=== PATIENT | female | born 1955 | race Caucasian/White ===

== ENCOUNTER → 2016-09-01 | Outpatient (CLI) | payer BC ==
[~2016-09-01] MED LIST: ENABLEX; METFORMIN; PROTONIX PO; SYNTHROID
--- NOTE | ~2016-09-01 | MY11 ---
[facility] A Service of [facility] RADIOLOGY TEXT RESULTS PATIENT: BENJAMIN DOLL LOCATION: [facility] : 55 UNIT #: [id number] AGE: [address]: Caro Mo MD SEX: F ORDER DR: [id number] [facility] [address] [place], [place] [address] [id number] O MR#: [id number] Acc #: [id number] NAME: BENJAMIN DOLL : 1955 SEX: F STUDY DATE/TIME: 09/01/2016 11:47 UNIT: [facility] ROOM: STUDY DESCRIPTION: MY Mammogram Screening Dig Karson Attending Physician: Caro Mo M.D. Referring Physician: Caro Mo M.D. Ordering Physician: Caro Mo M.D. Primary Care Physician: Caro Mo M.D. MEDICAL IMAGING REPORT This report is preliminary unless electronic signature is present EXAM Screening mammogram, 09/01 HISTORY 60-year-old with no personal history but a positive family history of breast cancer. No complaints. FINDINGS Routine digital screening views of both breasts were obtained. Study is reviewed with an FDA-approved CAD device. Comparison is made with 06/29/2013 and 12/17/2011. Breast parenchyma shows scattered fibroglandular densities. No masses or suspicious microcalcifications are seen. IMPRESSION Negative mammogram. Routine screen in one year recommended. Patients over the age of 40 are entered into a reminder system with target due date for the next mammogram. A result letter will also be sent to the patient. BIRADS: 1 Negative Dictated by... Davon Hernandez Jr., M.D. THIS IS AN ELECTRONICALLY VERIFIED REPORT Davon Hernandez Jr., M.D. at 09/03/2016 6:10 AM Marquise TD: 09/02/2016 14:59 [facility] A Service of [facility] RADIOLOGY TEXT RESULTS PATIENT: BENJAMIN DOLL LOCATION: [facility] #: [id number] : 55 UNIT #: [id number] AGE: [address]: Caro Mo MD SEX: F ORDER DR: JOB #: [id number] MEDICAL IMAGING REPORT Page 1 of 1 COPY
== END | disposition home or self-care (01) ==
LOC: CWCC 11:28
DX: Z12.31 Encounter for screening mammogram for malignant neoplasm of breast (principal); Z80.3 Family history of malignant neoplasm of breast
CPT/HCPCS: G0202